=== PATIENT | male | born 1945 | race Caucasian/White ===

== ENCOUNTER 2022-08-17 07:37 | Day surgery (SDC) | payer MEDICARE, BC ==
[2022-08-17] MEDS ORDERED: Propofol 200 MG/20 ML SDV ONE ×2 (07:50→09:06)
[2022-08-17] MEDS ORDERED: fentaNYL 50 MCG/ML SDV ONE (07:51)
[2022-08-17] MEDS ORDERED: Lactated Ringers 1,000 ML IV SCH (08:30)
== END 2022-08-17 10:10 | disposition home or self-care (01) ==
LOC: JP.SDS 07:37
PROVIDERS: ATTEND Family Medicine
DX: Z12.11 Encounter for screening for malignant neoplasm of colon (principal); D12.2 Benign neoplasm of ascending colon; F03.90 Unspecified dementia, unspecified severity, without behavioral disturbance, psychotic disturbance, mood disturbance, and anxiety; I10 Essential (primary) hypertension; Z98.890 Other specified postprocedural states
CPT/HCPCS: 45380; 88305; J2704; J3010; J7120

== ENCOUNTER 2023-07-02 13:02 | Emergency (ER) | payer MEDICARE, BC ==
[2023-07-02] MEDS: Bacitracin Oint 1 GM U/D Packet TOP ONE (14:19)
== END 2023-07-02 14:39 | disposition home or self-care (01) ==
LOC: JP.ED 13:02
DX: S81.811A Laceration without foreign body, right lower leg, initial encounter (principal); W22.8XXA Striking against or struck by other objects, initial encounter; Y92.007 Garden or yard of unspecified non-institutional (private) residence as the place of occurrence of the external cause; Z79.899 Other long term (current) drug therapy; Z86.16 Personal history of COVID-19
CPT/HCPCS: 99282

== ENCOUNTER 2024-08-23 01:30 | Emergency (ER) | payer MEDICARE, BC ==
[2024-08-23] MEDS: Lidocaine 1% with EPINEPHrine 1:100,000 20 ML MDV INJECT ONE (02:30)
[2024-08-23] MEDS: Bacitracin Oint 1 GM U/D Packet TOP ONE (03:24)
[2024-08-23] MEDS: Diphtheria,Pertussis(Acell),Tetanus Vaccine 0.5 ML Syringe IM ONE (03:24)
== END 2024-08-23 03:47 | disposition home or self-care (01) ==
LOC: JP.ED 01:30
DX: S01.81XA Laceration without foreign body of other part of head, initial encounter (principal); Z79.899 Other long term (current) drug therapy; Z86.16 Personal history of COVID-19; Z23 Encounter for immunization; W01.198A Fall on same level from slipping, tripping and stumbling with subsequent striking against other object, initial encounter; Y93.89 Activity, other specified
CPT/HCPCS: 12013; 70450; 72125; 76377; 90471; 90715; 99283; J2004